=== PATIENT | male | born 1990 | race Caucasian/White ===

== ENCOUNTER 2021-07-26 13:52 | Emergency (ER) | payer OTHER ==
[~2021-07-26] VITALS: Ht 182.9 cm; Wt 70.5 kg
[2021-07-26 14:09] VITALS: BP 136/84
== END 2021-07-26 17:13 | disposition home or self-care (01) ==
LOC: ER 13:53
DX: M54.12 Radiculopathy, cervical region (principal); M54.9 Dorsalgia, unspecified; V98.8XXA Other specified transport accidents, initial encounter; Y93.89 Activity, other specified; Y92.89 Other specified places as the place of occurrence of the external cause; Y99.8 Other external cause status
CPT/HCPCS: 72125; 72128; 99285

== ENCOUNTER 2021-08-06 16:32 | Emergency (ER) | payer SELFPAY ==
[~2021-08-06] VITALS: Ht 182.9 cm; Wt 70.5 kg
[2021-08-06 17:00] VITALS: BP 122/77
== END 2021-08-06 18:40 | disposition left against medical advice (07) ==
LOC: ER 16:33
DX: M25.512 Pain in left shoulder (principal); R06.02 Shortness of breath
CPT/HCPCS: 93005; 99283

== ENCOUNTER 2022-08-23 08:54 | Emergency (ER) | payer BC ==
[~2022-08-23] VITALS: Ht 182.9 cm; Wt 75.0 kg
--- NOTE | 2022-08-23 09:25 | NUR ---
CALL FOR HELP IN THE LOBBY, PATIENT FOUND SLUMPED OVER IN CHAIR, UNRESPONSIVE WITH SLOW SHALLOW BREATHING, PALE AND DIAPHORETIC, PATIENT INCOHERENT FOR APPROX 60 SECONDS. PATIENT BECAME RESPONSIVE AND STATED HE FELT WEAK AND NAUSEOUS WELL SWEATY. FATHER AT BEDSIDE STATES NO HX SEIZURES, WITNESS IN LOBBY STATED IT LOOKED LIKE PATIENT HAS A SEIZURE, NO SIGNS OF TRAUMA NOTED, PATIENT TAKEN TO ROOM VIA WHEELCHAIR BY TURF GROWER.
[2022-08-23] MEDS ORDERED: dexamethasone sod phosphate 10mg/ml inj IV STA (09:39)
[2022-08-23] MEDS ORDERED: normal saline 1000ML IV soln IVB ONE (09:40)
[2022-08-23] MEDS ORDERED: morphine 2 MG/ML inj. syringe IV PRN (09:40)
[2022-08-23] MEDS ORDERED: LIDOcaine 40mg/ml topical solution MM ONE ×2 (09:50→10:40)
[2022-08-23 10:31] LABS: BASOPHILS % (AUTO) 0.2 % (0-1); EOSINOPHILS % (AUTO) 0.2 % (0-6); HEMOGLOBIN 14.2 g/dl (14.0-17.9); LYMPHOCYTES # (AUTO) 1.1 X10'3 (1.1-4.8); LYMPHOCYTES % (AUTO) 9.9 % (21-51); MEAN CORPUSCULAR HGB CONC 32.9 g/dL (33.0-36.5); MEAN CORPUSCULAR VOLUME 88.2 FL (78-98); MEAN PLATELET VOLUME 7.2 FL (7.4-10.4); MONOCYTES % (AUTO) 9.6 % (2-12); NEUTROPHILS # (AUTO) 8.7 X10'3 (1.8-7.7); NEUTROPHILS % (AUTO) 80.1 % (42-75); PLATELET COUNT 268 X10'3 (140-440); RED BLOOD COUNT 4.88 X10'6 (4.70-6.10); RED CELL DISTRIBUTION WIDTH 12.5 % (11.5-14.5); WHITE BLOOD COUNT 10.8 X10'3 (4.5-11.0)
[2022-08-23] MEDS ORDERED: LIDOcaine 4% (40 mg/ml) topical solution 50ml TP ONE (10:45)
[2022-08-23 10:55] LABS: ALANINE AMINOTRANSFERASE 18 U/L (12-78); ALBUMIN 3.2 G/DL (3.4-5.0); ALBUMIN/GLOBULIN RATIO 0.8 (1.1-1.5); ALKALINE PHOSPHATASE 50 IU/L (46-116); ANION GAP 10 (8-16); ASPARTATE AMINO TRANSFERASE 12 U/L (10-37); BILIRUBIN,TOTAL 0.8 MG/DL (0.1-1.0); BLOOD UREA NITROGEN 14 MG/DL (7-18); BUN/CREATININE RATIO 13.6 (5.4-32.0); CALCIUM 8.6 MG/DL (8.5-10.1); CHLORIDE 103 MMOL/L (99-107); CREATININE 1.03 MG/DL (0.60-1.10); GLUCOSE 115 MG/DL (70-104); POTASSIUM 3.8 MMOL/L (3.5-5.1); SODIUM 138 MMOL/L (135-145); TOTAL PROTEIN 7.2 G/DL (6.4-8.2); eGFR 85 ML/MIN
[2022-08-23 11:38] VITALS: BP 120/78
[2022-08-23] MEDS ORDERED: clindamycin 600mg/D5W 50ml 50 ML IV ONE (11:40)
[2022-08-23] MEDS ORDERED: ibuprofen tablet 400 MG TABLET PO ONE (11:45)
[2022-08-23] MEDS ORDERED: CLIN-97 PO (12:32)
[2022-08-23] MEDS ORDERED: ACET-3068 PO (12:32)
[2022-08-23] MEDS ORDERED: PRED20TA PO (12:32)
== END 2022-08-23 12:47 | disposition home or self-care (01) ==
LOC: ER 08:55
DX: J36 Peritonsillar abscess (principal); Z88.2 Allergy status to sulfonamides; Z79.899 Other long term (current) drug therapy; Z79.1 Long term (current) use of non-steroidal anti-inflammatories (NSAID)
CPT/HCPCS: 36415; 42700; 80053; 83605; 85025; 87040; 87070; 87077; 87081; 87186; 87880; 96374; 96375; 99284; J1100; J2270; J3490; J7030; 94760

== ENCOUNTER 2023-02-15 15:32 | Emergency (ER) | payer BC ==
[~2023-02-15] VITALS: Ht 180.3 cm; Wt 86.0 kg
[~2023-02-15 15:32] MED LIST: CLIN-97 PO
[2023-02-15 15:41] VITALS: BP 111/74
[2023-02-15] MEDS ORDERED: PRED20TA PO (15:49)
[2023-02-15] MEDS ORDERED: ALBU8HFA PO (15:49)
[2023-02-15] MEDS ORDERED: MONT-47 PO (15:49)
== END 2023-02-15 18:26 | disposition home or self-care (01) ==
LOC: ER 15:33
DX: J45.909 Unspecified asthma, uncomplicated (principal); Z88.2 Allergy status to sulfonamides; Z88.8 Allergy status to other drugs, medicaments and biological substances
CPT/HCPCS: 99283

== ENCOUNTER 2023-05-27 15:56 | Outpatient (CLI) | payer BC ==
[~2023-05-27] VITALS: Ht 182.9 cm; Wt 78.5 kg
[~2023-05-27 15:56] MED LIST changes: +MONT-47 PO
[2023-05-27] MEDS ORDERED: albuterol 2.5 MG/3 ML nebule NEB ONE (16:20)
[2023-05-27 16:31] VITALS: PULSE 84; RESP 16; O2SAT 99
== END 2023-05-27 23:59 | disposition home or self-care (01) ==
LOC: RT 15:56
PROVIDERS: ATTEND Family Medicine
DX: R06.02 Shortness of breath (principal)
CPT/HCPCS: 94060; 94760

== ENCOUNTER 2024-12-11 14:06 | Outpatient (CLI) | payer MEDICAID | END 2024-12-11 23:59 | disposition home or self-care (01) | LOC: MRI02 14:06 | PROVIDERS: ATTEND Family Medicine | DX: M89.312 Hypertrophy of bone, left shoulder (principal); M25.512 Pain in left shoulder | CPT/HCPCS: 73221 ==